=== PATIENT | male | born 1945 ===

== ENCOUNTER 2022-03-03 18:51 | Emergency (ER) | payer MEDICARE, BC ==
[2022-03-03] MEDS ORDERED: Sodium Chloride 0.9% 10 ML Syringe FLUSH PRN (19:07)
[2022-03-03] MEDS ORDERED: Sodium Chloride 0.9% 1,000 ML IV SCH (19:15)
[2022-03-03 20:13] LABS: ESTIMATED GFR 60 mL/min (>60)
[2022-03-03] MEDS ORDERED: Atropine 0.4 MG/ML SDV IVPUSH PRN (21:28)
[2022-03-03] MEDS ORDERED: Clopidogrel 75 MG Tab PO SCH ×2 (22:30→23:15)
[2022-03-03] MEDS ORDERED: Simvastatin 40 MG Tab ONE (22:38)
[2022-03-03] MEDS ORDERED: Warfarin 5 MG Tab ONE (22:39)
[2022-03-03] MEDS ORDERED: Simvastatin 40 MG Tab PO SCH (23:15)
[2022-03-03] MEDS ORDERED: Warfarin 5 MG Tab PO SCH (23:15)
[2022-03-04] MEDS ORDERED: Lisinopril 20 MG Tab PO SCH (06:40)
[2022-03-04] MEDS ORDERED: Hydrochlorothiazide 12.5 MG Cap PO SCH (08:00)
[2022-03-04] MEDS ORDERED: Pantoprazole 40 MG Tab.CR PO SCH (08:00)
[2022-03-04] MEDS ORDERED: Escitalopram 20 MG Tab PO SCH (08:00)
[2022-03-04] MEDS ORDERED: Montelukast 10 MG Tab PO SCH (08:00)
[2022-03-04] MEDS ORDERED: metFORMIN 500 MG Tab.ER PO SCH (08:00)
[2022-03-04] MEDS ORDERED: Simvastatin 40 MG Tab PO SCH (20:00)
[2022-03-04] MEDS ORDERED: Clopidogrel 75 MG Tab PO SCH (20:00)
== END 2022-03-04 13:30 | disposition home or self-care (01) ==
LOC: EDBD 18:51 → LB.ED 18:51
DX: R00.1 Bradycardia, unspecified (principal); E78.00 Pure hypercholesterolemia, unspecified; I12.9 Hypertensive chronic kidney disease with stage 1 through stage 4 chronic kidney disease, or unspecified chronic kidney disease; N18.9 Chronic kidney disease, unspecified; J44.9 Chronic obstructive pulmonary disease, unspecified; K21.9 Gastro-esophageal reflux disease without esophagitis; Z86.73 Personal history of transient ischemic attack (TIA), and cerebral infarction without residual deficits; Z95.1 Presence of aortocoronary bypass graft; Z79.02 Long term (current) use of antithrombotics/antiplatelets; Z79.899 Other long term (current) drug therapy; Z79.01 Long term (current) use of anticoagulants; Z87.891 Personal history of nicotine dependence
CPT/HCPCS: 36415; 70450; 71250; 72125; 74176; 80048; 80307; 81001; 82947; 84484; 85025; 85610; 93005; 99283; 99285; A9270; A0425; A0429